=== PATIENT | female | born 2000 | race Caucasian/White ===

== ENCOUNTER 2021-01-08 15:15 | Emergency (ER) | payer OTHER ==
[~2021-01-08] VITALS: Ht 154.9 cm; Wt 81.6 kg
[2021-01-08 15:39] VITALS: BP 117/75
--- NOTE | 2021-01-08 15:47 | NUR ---
TENT 3
[2021-01-08 17:02] VITALS: BP 120/71
--- NOTE | 2021-01-08 17:03 | NUR ---
NO NURSING INTERVENTIONS GIVEN
--- NOTE | 2021-01-08 17:03 | NUR ---
Patient discharged with v/s stable. Written and verbal after care instructions given and explained. Patient verbalized understanding. Ambulatory with steady gait. All questions addressed prior to discharge. Advised to follow up with PMD.
== END 2021-01-08 17:03 | disposition home or self-care (01) ==
LOC: MED 15:15
DX: U07.1 COVID-19 (principal)
CPT/HCPCS: 99281

== ENCOUNTER 2021-05-18 20:30 | Emergency (ER) | payer OTHER ==
[~2021-05-18] VITALS: Ht 157.5 cm; Wt 47.2 kg
[2021-05-18 20:35] VITALS: BP 134/86
[2021-05-18 20:40] VITALS: BP 134/86
--- NOTE | 2021-05-18 23:09 | NUR ---
called at 23:09 to lobby x3 times, no answer.
--- NOTE | 2021-05-18 23:56 | NUR ---
called patient in lobby/tent. no answer. left without being seen by doctor.
--- NOTE | 2021-05-18 23:56 | NUR ---
PATIENT LEFT WITHOUT BEING SEEN BY DR. MEJIA. NO FURTHER CARE PROVIDED FOR PATIENT.
== END 2021-05-18 23:56 | disposition left against medical advice (07) ==
LOC: MED 20:30
DX: R10.13 Epigastric pain (principal); Z53.21 Procedure and treatment not carried out due to patient leaving prior to being seen by health care provider